=== PATIENT | male | born 1950 | race Caucasian/White ===

== ENCOUNTER 2018-02-23 17:03 | Emergency (ER) | payer OTHER ==
[2018-02-23 17:20] VITALS: BP 142/85; PULSE 67; TEMP 99; BMI 24.8
[2018-02-23] MEDS ORDERED: IBUPROFEN 600 MG TABLET (FP) PO ONE ×3 (17:21→18:02)
--- NOTE | 2018-02-23 17:24 | PDOC ---
History of Present Illness - General History Source: Patient Exam Limitations: No Limitations - History of Present Illness Initial Comments: 02/23/18 17:27 The patient is a 67 year old male, with no significant past medical history, who presents to the emergency department with right knee/leg pain since yesterday. The patient reports that he has pain primarily when he bends his right knee. He is able to localize the pain to the posterior aspect of his knee in addition to along the lateral aspect of his knee. The patient states that he noticed the pain yesterday but states that it wasnt that painful and only slightly bothered him. This morning, however, the patient reports that the pain had become much worse to the point where it is painful to walk on it, prompting him to come to the ED for further evaluation. He states that he took one Tylenol last night which somewhat helped alleviate the pain. He states that he is usually is quite an active person, he walks or rides his bike almost daily after work. He denies any injury or trauma to the right knee or leg. Allergies: None reported. Past Surgical History: None reported. Social History: Non-smoker. Denies alcohol or drug use. <Ratna Cooper - Last Filed: 02/23/18 17:27> <Sara Vargas - Last Filed: 02/23/18 17:45> - General Chief Complaint: Pain Stated Complaint: RIGHT LEG PAIN PAIN Time Seen by Provider: 02/23/18 17:05 Past History <Ratna Cooper - Last Filed: 02/23/18 17:27> - Past Medical History COPD: No - Suicide/Smoking/Psychosocial Hx Smoking History: Never smoked Have you smoked in the past 12 months: No Information on smoking cessation initiated: No Hx Alcohol Use: No Drug/Substance Use Hx: No Substance Use Type: None <Sara Vargas - Last Filed: 02/23/18 17:45> - Past Medical History Allergies/Adverse Reactions: Allergies Allergy/AdvReac Type Severity Reaction Status Date / Time No Known Allergies Allergy Verified 02/23/18 17:04 Home Medications: Ambulatory Orders NK [No Known Home Medication] 02/23/18 Review of Systems - Review of Systems Able to Perform ROS?: Yes Comments:: 02/23/18 17:27 GENERAL/CONSTITUTIONAL: No fever or chills. No weakness. HEAD, EYES, EARS, NOSE AND THROAT: No change in vision. No ear pain or discharge. No sore throat. MUSCULOSKELETAL: +Right knee/leg pain. No neck or back pain. SKIN: No rash. NEUROLOGIC: No headache, vertigo, loss of consciousness, or change in strength/ sensation. <Ratna Cooper - Last Filed: 02/23/18 17:27> *Physical Exam - Vital Signs Last Vital Signs Temp Pulse Resp BP Pulse Ox 99 F 67 20 142/85 99 02/23/18 17:04 02/23/18 17:04 02/23/18 17:04 02/23/18 17:04 02/23/18 17:04 <Ratna Cooper - Last Filed: 02/23/18 17:27> - Vital Signs Last Vital Signs Temp Pulse Resp BP Pulse Ox 99 F 67 20 142/85 99 02/23/18 17:04 02/23/18 17:04 02/23/18 17:04 02/23/18 17:04 02/23/18 17:04 - Physical Exam Comments: GENERAL: Awake, alert, and fully oriented, in no acute distress HEAD: No signs of trauma EXTREMITIES: R knee with full ROM. +Mild effusion. No tenderness to the knee joint. No overlying skin changes. Pain elicited on movement of the hamstrings on R side (patient indicates the insertion points of the hamstring muscles when asked the location of his pain). Remainder of extremities with normal range of motion, no edema. No clubbing or cyanosis. No cords, erythema, or tenderness NEUROLOGICAL: Cranial nerves II through XII grossly intact. Normal speech, normal gait SKIN: Warm, Dry, normal turgor, no rashes or lesions noted. <Sara Vargas - Last Filed: 02/23/18 17:45> Medical Decision Making - Medical Decision Making 02/23/18 17:22 No signs of septic joint or DVT. DDx includes bursitis, tendinitis, muscle strain. Will give NSAID for pain, obtain XR. <Sara Vargas - Last Filed: 02/23/18 17:45> *DC/Admit/Observation/Transfer - Attestations Scribe Attestion: 02/23/18 17:27 Documentation prepared by Ratna Cooper, acting as medical coding specialist for Sara Vargas MD. <Ratna Cooper - Last Filed: 02/23/18 17:27> - Discharge Dispostion Decision to Admit order: No <Sara Vargas - Last Filed: 02/23/18 17:45> Diagnosis at time of Disposition: Knee pain Qualifiers: Chronicity: acute Laterality: right Qualified Code(s): M25.561 - Pain in right knee - Discharge Dispostion Disposition: HOME Condition at time of disposition: Stable - Referrals Referrals: Kwame Coe MD [Staff Physician] - - Patient Instructions Printed Discharge Instructions: DI for Knee Pain
== END 2018-02-23 19:38 | disposition home or self-care (01) ==
LOC: FER 17:03
DX: M25.561 Pain in right knee (principal)
CPT/HCPCS: 73562-TC-RT-FY; 99282-25

== ENCOUNTER 2018-09-25 12:08 | Emergency (ER) | payer OTHER ==
[2018-09-25 12:31] VITALS: BMI 26.1
--- NOTE | 2018-09-25 13:09 | PDOC ---
History of Present Illness - General Chief Complaint: Respiratory Stated Complaint: GENERALIZED BODY ACHES CONGESTION History Source: Patient Exam Limitations: No Limitations - History of Present Illness Initial Comments: 68 yo M with CLL (dx March 2017; followed by Dr. Whittington at [facility], on surveillance) presents to the emergency department with fevers, chills, and nasal congestion for the past 3 days. Per the patient, he was at a libertarian over the weekend that did not have visibly sick individuals, but children were present. He states he is having mild SOB and sore throat, but denies coughs and chest pain. His previous WBC values range between 8-10 per his last few checkups. Denies the following: nausea, vomiting, abdominal pain, visual changes , dysuria, hematuria, diarrhea, hematochezia, and leg pain/swelling. pmhx: refer to above shx: right knee arthroplasty meds: none allergies: nkda social: denies tobacco, alcohol, and substance abuse. Past History - Past Medical History Allergies/Adverse Reactions: Allergies Allergy/AdvReac Type Severity Reaction Status Date / Time No Known Allergies Allergy Verified 09/25/18 12:09 Home Medications: Ambulatory Orders Oseltamivir Phosphate [Tamiflu -] 75 mg PO BID #10 capsule 09/25/18 COPD: No Other medical history: CLL - Suicide/Smoking/Psychosocial Hx Smoking History: Never smoked Have you smoked in the past 12 months: No Information on smoking cessation initiated: No Hx Alcohol Use: No Drug/Substance Use Hx: No Substance Use Type: None Review of Systems - Review of Systems Able to Perform ROS?: Yes Is the patient limited Citizen Of [place] proficient: No Constitutional: Yes: Chills, Fever, Malaise. No: Diaphoresis, Weakness HEENTM: No: Eye Pain, Recent change in vision, Ear Pain, Nose Pain, Throat Pain , Mouth Pain Respiratory: Yes: Shortness of Breath. No: Cough, SOB with Exertion, Hemoptysis Cardiac (ROS): No: Chest Pain, Lightheadedness, Palpitations, Syncope, Chest Tightness ABD/GI: Yes: Poor Appetite, Poor Fluid Intake. No: Constipated, Diarrhea, Nausea, Rectal Bleeding, Vomiting, Tarry Stools : No: Burning, Dysuria, Hematuria, Urgency Musculoskeletal: No: Back Pain, Gout, Joint Pain, Neck Pain Integumentary: No: Erythema, Flushing, Lesions, Lumps, Rash Neurological: Yes: Headache. No: Numbness, Tingling, Tremors, Ataxia, Dizziness Psychiatric: No: Stressors Endocrine: No: Unexplained Weight Gain Hematologic/Lymphatic: No: Anemia *Physical Exam - Vital Signs Last Vital Signs Temp Pulse Resp BP Pulse Ox 98.3 F 82 16 122/69 98 09/25/18 12:09 09/25/18 12:09 09/25/18 12:09 09/25/18 12:09 09/25/18 12:09 - Physical Exam General Appearance: Yes: Nourished, Appropriately Dressed. No: Apparent Distress, Intoxicated HEENT: positive: EOMI, [place], Normal Voice, Symmetrical, Pharynx Normal, Nasal Congestion, Hearing Grossly Normal. negative: Pale Conjunctivae, Photophobia, Scleral Icterus (R), Scleral Icterus (L), Muffled/Hoarse voice, Pharyngeal Erythema, Tonsillar Exudate, Tonsillar Erythema, Sinus Tenderness, Excessive drooling Neck: positive: Trachea midline. negative: Tender, Lymphadenopathy (R), Lymphadenopathy (L), Tender lateral, Tender midline Respiratory/Chest: positive: Lungs Clear, Normal Breath Sounds. negative: Chest Tender, Respiratory Distress, Accessory Muscle Use, Crackles, Rales, Rhonchi, Stridor, Wheezing, Hyperresonant Cardiovascular: positive: Regular Rhythm, Regular Rate, S1, S2. negative: Systolic Murmur Gastrointestinal/Abdominal: positive: Normal Bowel Sounds, Flat, Soft. negative : Tender, Distended, Rebound, Tenderness Musculoskeletal: positive: Normal Inspection. negative: CVA Tenderness, Vertebral Tenderness Extremity: positive: Normal Capillary Refill, Normal Inspection, Normal Range of Motion. negative: Tender, Pedal Edema, Swelling, Calf Tenderness Integumentary: positive: Normal Color, Dry, Warm. negative: Diaphoresis, Rash, Swelling, Ecchymosis Neurologic: positive: window shade ring sewer II-XII NML intact, Fully Oriented, Alert, Normal Mood/ Affect, Normal Response, Motor Strength 5/5. negative: EOM Palsy, Facial Droop , Sensory Deficit Moderate Sedation - Procedure Monitoring Vital Signs: Procedure Monitoring Vital Signs Temperature 98.3 F 09/25/18 12:09 Pulse Rate 82 09/25/18 12:09 Respiratory Rate 16 09/25/18 12:09 Blood Pressure 122/69 09/25/18 12:09 O2 Sat by Pulse Oximetry (%) 98 09/25/18 12:09 ED Treatment Course - LABORATORY CBC & Chemistry Diagram: 09/25/18 13:39 09/25/18 13:39 Medical Decision Making - Medical Decision Making 68 yo M with CLL (dx March 2017; followed by Dr. Whittington at [facility], on surveillance) presents to the emergency department with fevers, chills, and nasal congestion for the past 3 days. Initial vitals: Initial Vital Signs Temp Pulse Resp BP Pulse Ox 98.3 F 82 16 122/69 98 09/25/18 12:09 09/25/18 12:09 09/25/18 12:09 09/25/18 12:09 09/25/18 12:09 work up: viral syndrome, pharyngitis (bacterial vs viral), flu, electrolyte disturbance, URI, PNA. currently, patient is not on chemo or radiation only surveillance. Laboratory Tests 09/25/18 09/25/18 09/25/18 13:39 13:39 13:39 WBC 10.6 RBC 4.91 Hgb 14.8 Hct 44.7 MCV 91.0 MCH 30.0 MCHC 33.0 RDW 12.4 Plt Count 141 MPV 7.9 Absolute Neuts (auto) 5.2 Neutrophils % 48.5 Lymphocytes % 39.5 Monocytes % 10.3 H Eosinophils % 1.4 Basophils % 0.3 Sodium Potassium Chloride Carbon Dioxide Anion Gap BUN Creatinine Creat Clearance w eGFR Random Glucose Calcium Total Bilirubin AST ALT Alkaline Phosphatase Total Protein Albumin Influenza A (Rapid) Positive Influenza B (Rapid) Negative Group A Strep Rapid Negative 09/25/18 13:39 WBC RBC Hgb Hct MCV MCH MCHC RDW Plt Count MPV Absolute Neuts (auto) Neutrophils % Lymphocytes % Monocytes % Eosinophils % Basophils % Sodium 134 L Potassium 4.0 Chloride 98 Carbon Dioxide 29 H Anion Gap 7 L BUN 17 Creatinine 1.1 Creat Clearance w eGFR > 60 Random Glucose 104 Calcium 8.9 Total Bilirubin 0.9 AST 21 ALT 20 Alkaline Phosphatase 70 Total Protein 6.9 Albumin 4.1 Influenza A (Rapid) Influenza B (Rapid) Group A Strep Rapid CXR was negative for acute pathologies. the rest of the labs were within normal limits. strep negative. the patient was given 1 gram of tylenol and 1 l of NS with improvement in pain. A call was placed to Dr. Whittington who stated he would follow up with the patient sooner than October's previously scheduled appointment. he found his WBC to be reassuring and not deranged. Influenza test A came back positive and the patient was notified and tamiflu was prescribed for 5 days. I discussed the physical exam findings, ancillary test results, and final diagnoses with the patient. I answered all of the patients questions to their satisfaction. The patient was satisfied with the care received and felt comfortable with the discussed discharge and treatment plan and accepted it. They agreed to follow up with their primary medical physical physician within 24 -72 hours after discharge for follow up care and management. Dispo: Discharge *DC/Admit/Observation/Transfer Diagnosis at time of Disposition: Viral syndrome - Discharge Dispostion Disposition: HOME Condition at time of disposition: Stable Decision to Admit order: No - Prescriptions Prescriptions: Oseltamivir Phosphate [Tamiflu -] 75 mg PO BID #10 capsule - Referrals [place] [facility] [place] [facility] [place] Group] Jalen Cardenas [Non Staff, Medical] - - Patient Instructions Additional Instructions: you were seen for the evaluation of your headache and general body malaise. your labs and chest xray came back within normal limits. please follow up with Dr. Whittington. We called his office and they are aware of your visit. Please call them if you do not hear from them within 48 hours after discharge and make sure to visit his office within 1 week after discharge for follow up care and management. please see Dr. Cardenas within 1 week for follow up care and management. please return to the emergency department if you have worsening symptoms or new concerning symptoms such as chest pain and fever, fever with shortness of breath, nausea and vomiting with fever, and fever with altered mental status. thank you. - Post Discharge Activity Forms/Work/School Notes: Back to Work
[2018-09-25] MEDS ORDERED: SODIUM CHLORIDE 1,000 ML IV STA (13:11)
[2018-09-25] MEDS ORDERED: ACETAMINOPHEN 1000 MG/100 ML VIAL (NON FORMULARY) IVPB ONE (13:11)
[2018-09-25] MEDS ORDERED: ACETAMINOPHEN INJECTION 100 ML IVPB ONE (14:02)
--- NOTE | 2018-09-25 14:09 | PDOC ---
Attending Attestation - Resident Resident Name: JeannieRomain - ED Attending Attestation I have performed the following: I have examined & evaluated the patient, The case was reviewed & discussed with the resident, I agree w/resident's findings & plan - HPI HPI: 09/25/18 14:08 Zhanna 68 YOM with CLL on surveillance presenting with subjective fevers, chills and malaise, nasal congestion x 2-3 days. No known sick contacts or travel, but did attend green party this weekend with children Follows with at [facility], Dr Whittington 09/25/18 15:06 09/25/18 15:34 - Physicial Exam PE: 09/25/18 14:08 NAD, well appearing, PERRL, EOMI, MMM, nl conjunctiva, anicteric; normal phonation, no tonsillary exudate/hypertrophy. MMM, no oral lesions. neck supple. lungs clear, RRR, abdomen soft nontender. AWAN x4, no focal neuro deficits. No peripheral edema. normal color for ethnicity, WWP. - Medical Decision Making 09/25/18 14:08 See HPI for details Vital signs reviewed, wnl. no fever here DDx. viral syndrome, influenza, pharyngitis, strep, electrolyte derangements, URI. Prior notes reviewed, including admissions, discharges and consultations. laboratory results and imaging reviewed, basic labs and lytes wnl, reassuring. CXR clear, no pna or thoracic pathology Strep test negative, f/u culture. Influenza test_pending. came back positive for Influenza A, so given timeline < 2 days, treat with tamiflu x 5 day, sent to pharmacy ED course: no acute events, well appearing. chelsi PO. no chemo/immunosuppressant use currently, so doubt serious infection, still most likely viral etiology. [place] [facility] [place], will give clinical callback to patient. Dispo: Pt to be discharged in stable condition. Patient and family made aware of impression and plan, return precautions discussed (including but not limited to worsening pain or symptoms), fevers, or signs of infection, chest pain, respiratory distress, inability to tolerate oral intake, dehydration, syncope, or neurologic changes). Follow up with PMD and/or specialist as recommended, follow up information provided, take medications as instructed for duration of time. continue with supportive care, avoid triggers and precipitants. All questions answered to patient's satisfaction and expressed understanding and comfort with this. 09/25/18 15:57
[2018-09-25 14:13] LABS: BASO % 0.3 % (0-2.0); EOS % 1.4 % (0-4.5); HEMATOCRIT 44.7 % (35.4-49); HEMOGLOBIN 14.8 GM/dl (11.7-16.9); LYMPH % 39.5 % (8-40); MEAN PLT VOLUME 7.9 fl (7.5-11.1); MONO % 10.3 % (3.8-10.2); NEUT % 48.5 % (42.8-82.8); PLATELET COUNT 141 K/MM3 (134-434); RBC 4.91 M/mm3 (4.00-5.60); RDW 12.4 % (11.9-15.9); WHITE BLOOD COUNT 10.6 K/mm3 (4.0-10.8)
[2018-09-25 14:16] LABS: ALBUMIN 4.1 g/dl (3.5-5.0); ALK PHOS 70 U/L (32-92); ANION GAP 7 MMOL/L (8-16); BILIRUBIN,TOTAL 0.9 mg/dl (0.2-1.0); BLOOD UREA NITROGEN 17 mg/dl (7-18); CALCIUM 8.9 mg/dl (8.4-10.2); CHLORIDE 98 mmol/L (98-107); CO2 29 mmol/L (22-28); CREATININE 1.1 mg/dl (0.6-1.3); GLUCOSE,RANDOM 104 mg/dl (74-106); SGOT/AST 21 U/L (10-42); SGPT/ALT 20 U/L (10-40); SODIUM 134 mmol/L (136-145); TOT PROT 6.9 g/dl (6.4-8.3)
[2018-09-25 15:17] VITALS: BP 121/68; PULSE 64; TEMP 99
== END 2018-09-25 15:20 | disposition home or self-care (01) ==
LOC: FER 12:08
PROC: 3E033NZ Introduction of Analgesics, Hypnotics, Sedatives into Peripheral Vein, Percutaneous Approach (ICD-10-PCS; principal; 2018-09-25)
PROC: 3E0337Z Introduction of Electrolytic and Water Balance Substance into Peripheral Vein, Percutaneous Approach (ICD-10-PCS; 2018-09-25)
DX: B34.9 Viral infection, unspecified (principal); C91.10 Chronic lymphocytic leukemia of B-cell type not having achieved remission
CPT/HCPCS: 36415; 71046-TC-FY; 80053; 85025; 87070; 87804; 87880; 99283-25; J0131; J7030